=== PATIENT | female | born 1950 | race Caucasian/White ===

== ENCOUNTER → 2017-08-26 | Outpatient (REF) | payer MEDICARE, BC | LOC: M LAB REF 12:44 | PROVIDERS: ATTEND Family Medicine | DX: E83.52 Hypercalcemia (principal) ==

== ENCOUNTER → 2018-03-08 | Outpatient (REF) | payer MEDICARE, BC | LOC: M SFHCLERA 18:21 | DX: J02.9 Acute pharyngitis, unspecified (principal) ==

== ENCOUNTER → 2018-05-17 | Outpatient (CLI) | payer BC, MEDICARE ==
[2018-05-17 10:31] LABS: HEMOGLOBIN 12.9 g/dl (12.0-15.5); MEAN CORPUSCULAR HEMOGLOBIN 32.3 pg (27.0-33.0); MEAN CORPUSCULAR HGB CONC 33.1 g/dl (32.0-36.5); MEAN CORPUSCULAR VOLUME 97.7 fl (80.0-96.0); PLATELET COUNT, AUTOMATED 208 10^3/uL (150-450); RED BLOOD COUNT 3.99 10^6/uL (4.00-5.40); RED CELL DISTRIBUTION WIDTH 13.6 % (11.5-14.5); WHITE BLOOD COUNT 6.3 10^3/uL (4.0-10.0)
[2018-05-17 10:46] LABS: INR 1.04; PROTHROMBIN TIME 13.7 SECONDS (12.1-14.4)
[2018-05-17 10:50] LABS: ERYTHROCYTE SEDIMENTATION RATE 21 mm/hr (0-30)
[2018-05-17 11:09] LABS: ALBUMIN 3.9 GM/DL (3.2-5.2); ALBUMIN/GLOBULIN RATIO 1.18 (1.00-1.93); ALKALINE PHOSPHATASE 62 U/L (45-117); ALT/SGPT 23 U/L (12-78); ANION GAP 4 MEQ/L (8-16); AST/SGOT 15 U/L (7-37); BILIRUBIN,TOTAL 0.3 MG/DL (0.2-1.0); BLOOD UREA NITROGEN 16 MG/DL (7-18); CALCIUM LEVEL 9.9 MG/DL (8.8-10.2); CARBON DIOXIDE LEVEL 32 MEQ/L (21-32); CHLORIDE LEVEL 105 MEQ/L (98-107); CREATININE FOR GFR 0.84 MG/DL (0.55-1.30); GLOMERULAR FILTRATION RATE > 60.0 (>45); GLUCOSE, FASTING 81 MG/DL (70-100); SODIUM LEVEL 141 MEQ/L (136-145); TOTAL PROTEIN 7.2 GM/DL (6.4-8.2)
== END ==
LOC: M LAB 10:02
DX: Z01.810 Encounter for preprocedural cardiovascular examination (principal); M17.12 Unilateral primary osteoarthritis, left knee
CPT/HCPCS: 71046

== ENCOUNTER 2018-06-01 08:48 | Inpatient (IN) | payer MEDICARE, BC ==
[~2018-06-01 08:48] MED LIST: LIDOCAINE 1% MDV 20ML VIAL SQ
[2018-06-01] MEDS: LISINOPRIL 20 MG TAB PO (09:00)
[2018-06-01] MEDS: ACETAMINOPHEN 500 MG TAB PO (09:36)
[2018-06-01] MEDS: LR 1,000 ML IV ×3 (09:37→14:15)
[2018-06-01] MEDS ORDERED: MIDAZOLAM INJ 2 MG/2 ML VIAL (J2250) As Ordered ×2 (10:08→10:44)
[2018-06-01] MEDS ORDERED: fentaNYL 100 MCG/2 ML INJECTION (J3010) As Ordered ×2 (10:08→10:44)
[2018-06-01] MEDS: fentaNYL 100 MCG/2 ML INJECTION (J3010) IV (10:32)
[2018-06-01] MEDS: MIDAZOLAM INJ 2 MG/2 ML VIAL (J2250) IV ×2 (10:32→10:35)
[2018-06-01] MEDS ORDERED: LIDOCAINE 2% INJ 100 MG/5 ML SDV (FOR ANES.) As Ordered (10:45)
[2018-06-01] MEDS ORDERED: PROPOFOL 200 MG/20 ML VIAL As Ordered (10:45)
[2018-06-01] MEDS ORDERED: EPINEPHrine INJ 1 MG/ML 1ML AMP (11:59)
[2018-06-01] MEDS ORDERED: LIDOCAINE 1% MDV 20ML VIAL (11:59)
[2018-06-01] MEDS ORDERED: ROPIvacaine 0.5% 30 ML INJECTION (J2795 PER 1MG) (11:59)
[2018-06-01] MEDS ORDERED: ePHEDrine SULFATE 25 MG/5 ML(5MG/ML) SYRINGE As Ordered (12:14)
[2018-06-01] MEDS ORDERED: BUPIVACAINE/DEXTROSE 0.75% 2 ML AMP As Ordered (12:21)
[2018-06-01] MEDS ORDERED: ONDANSETRON 4MG/2ML VIAL (J2405) As Ordered (12:28)
[2018-06-01] MEDS ORDERED: dexameTHASONE 4 MG/ML 1ML VIAL (J1100) As Ordered (12:28)
[2018-06-01] MEDS: ceFAZolin 1GM INJ (J0690 PER 500MG) As Ordered (12:40)
[2018-06-01] MEDS: BUPIVACAINE HCL 0.25% 10 ML VIAL As Ordered (13:06)
[2018-06-01] MEDS: BUPIVACAINE LIPOSOME/PF 1.3% 20 ML VIAL (13.3MG/ML)(EXPAREL) As Ordered (13:06)
[2018-06-01] MEDS: EPINEPHrine INJ 1 MG/ML 1ML AMP As Ordered (13:07)
[2018-06-01] MEDS: TRANEXAMIC ACID 100 MG/ML 10ML VIAL As Ordered (13:07)
[2018-06-01] MEDS ORDERED: MORPHINE 1MG/ML IN 0.9% NACL 100ML IV BAG As Ordered (13:30)
[2018-06-01] MEDS ORDERED: NALOXONE INJ 0.4 MG/1 ML VIAL (J2310) IV (14:00)
[2018-06-01] MEDS ORDERED: ACETAMINOPHEN TAB 650MG DOSE (2X325MG) PO (14:00)
[2018-06-01] MEDS ORDERED: MORPHINE 1MG/ML IN 0.9% NACL 100ML IV BAG IV (14:00)
[2018-06-01] MEDS ORDERED: ONDANSETRON 4MG/2ML VIAL (J2405) IV ×2 (14:00→14:15)
[2018-06-01] MEDS ORDERED: FLEET ENEMA PR (14:00)
[2018-06-01] MEDS ORDERED: diphenhydrAMINE INJ 50MG/ML VIAL (J1200) IV (14:00)
[2018-06-01] MEDS ORDERED: EPIDURAL/PCA KEYS XX (14:00)
[2018-06-01] MEDS ORDERED: NALBUPHINE HCL 10 MG/ML AMP (J2300) IV (14:00)
[2018-06-01] MEDS ORDERED: MEPERIDINE INJ 25 MG/ML VIAL (J2175) IV (14:15)
[2018-06-01] MEDS ORDERED: METOCLOPRAMIDE INJ 10MG/2ML VIAL (J2765) IV (14:15)
[2018-06-01] MEDS ORDERED: PERCOCET 5MG/325MG TAB PO (14:15)
[2018-06-01] MEDS ORDERED: fentaNYL 100 MCG/2 ML INJECTION (J3010) IV (14:15)
[2018-06-01] MEDS: ATORVASTATIN 20 MG TAB PO (16:28)
[2018-06-01] MEDS: valACYclovir HCL 500 MG TAB PO (20:36)
[2018-06-01] MEDS: FAMOTIDINE 20 MG TAB PO (20:36)
[2018-06-02] MEDS: LR 1,000 ML IV (02:45)
[2018-06-02] MEDS: LEVOTHYROXINE 75MCG TABLET (0.075MG) PO (06:10)
[2018-06-02 06:31] LABS: HEMATOCRIT 37.1 % (36.0-47.0); HEMOGLOBIN 11.9 g/dl (12.0-15.5); MEAN CORPUSCULAR HEMOGLOBIN 32.5 pg (27.0-33.0); MEAN CORPUSCULAR HGB CONC 32.1 g/dl (32.0-36.5); MEAN CORPUSCULAR VOLUME 101.4 fl (80.0-96.0); PLATELET COUNT, AUTOMATED 203 10^3/uL (150-450); RED BLOOD COUNT 3.66 10^6/uL (4.00-5.40); RED CELL DISTRIBUTION WIDTH 13.4 % (11.5-14.5); WHITE BLOOD COUNT 8.3 10^3/uL (4.0-10.0)
[2018-06-02 06:44] LABS: ANION GAP 6 MEQ/L (8-16); BLOOD UREA NITROGEN 15 MG/DL (7-18); CALCIUM LEVEL 9.2 MG/DL (8.8-10.2); CARBON DIOXIDE LEVEL 29 MEQ/L (21-32); CHLORIDE LEVEL 106 MEQ/L (98-107); CREATININE FOR GFR 0.85 MG/DL (0.55-1.30); GLOMERULAR FILTRATION RATE > 60.0 (>45); GLUCOSE, FASTING 119 MG/DL (70-100); POTASSIUM SERUM 4.2 MEQ/L (3.5-5.1); SODIUM LEVEL 141 MEQ/L (136-145)
[2018-06-02] MEDS ORDERED: PERCOCET 5MG/325MG TAB PO (06:45)
[2018-06-02] MEDS: MIRALAX *UNIT DOSE* 17GM PACKET PO (08:38)
[2018-06-02] MEDS: MOM 30ML SUSPENSION UDC PO (08:38)
[2018-06-02] MEDS: PERCOCET 5MG/325MG TAB PO ×2 (08:40→11:51)
[2018-06-02] MEDS: ATORVASTATIN 20 MG TAB PO (08:40)
[2018-06-02] MEDS: SENOKOT S TAB PO (08:40)
[2018-06-02] MEDS: ESCITALOPRAM OXALATE 10 MG TAB (LEXAPRO) PO (08:42)
[2018-06-02] MEDS: LISINOPRIL 20 MG TAB PO (08:42)
[2018-06-02] MEDS: hydroCHLOROthiazide 12.5 MG CAPSULE PO (11:52)
[2018-06-02] MEDS ORDERED: RIVAROXABAN 10 MG TAB (XARELTO) PO (18:00)
[2018-06-03] MEDS ORDERED: LEVOTHYROXINE 88MCG TABLET (0.088 MG) PO (06:00)
== END 2018-06-02 12:23 | disposition home or self-care (01) | DRG 470 ==
LOC: M OR 08:48 → M MS5PR 15:00
PROC: 0SRD0J9 Replacement of Left Knee Joint with Synthetic Substitute, Cemented, Open Approach (ICD-10-PCS; principal; 2018-06-01 11:45)
DX: M17.12 Unilateral primary osteoarthritis, left knee (principal); E03.9 Hypothyroidism, unspecified; I10 Essential (primary) hypertension; E78.00 Pure hypercholesterolemia, unspecified; F32.9 Major depressive disorder, single episode, unspecified; K21.9 Gastro-esophageal reflux disease without esophagitis; G47.33 Obstructive sleep apnea (adult) (pediatric); E55.9 Vitamin D deficiency, unspecified; Z79.899 Other long term (current) drug therapy; Z87.891 Personal history of nicotine dependence; F34.1 Dysthymic disorder; E78.5 Hyperlipidemia, unspecified; I83.90 Asymptomatic varicose veins of unspecified lower extremity; F10.10 Alcohol abuse, uncomplicated; B00.9 Herpesviral infection, unspecified

== ENCOUNTER → 2018-06-16 | Outpatient (REF) | payer MEDICARE, BC ==
[2018-06-16 19:47] LABS: FOLATE 14.7 NG/ML
== END ==
LOC: M LAB REF 17:46
DX: R71.8 Other abnormality of red blood cells (principal)
CPT/HCPCS: 82746

== ENCOUNTER → 2019-02-17 | Outpatient (REF) | payer MEDICARE, BC ==
[~2019-02-17] MED LIST changes: +ALEV220T26 PO; +ASPI81TA26 PO; +ATOR1TAB21 PO; +DICL1GEL3 TD; +DRIS50003 PO; +LEVO75TA4 PO; +LEVO88TA3 PO; +LEXA1TAB2 PO; -LIDOCAINE 1% MDV 20ML VIAL SQ; +LISI20TA PO; +PERC5TAB12 PO; +RANI150T PO; +SLOWTAB2 PO; +TURM500T PO; +VALA1TAB2 PO; +XARE10TA PO
== END ==
LOC: M LAB REF 12:42
PROVIDERS: ATTEND Family Medicine
DX: E83.52 Hypercalcemia (principal)

== ENCOUNTER → 2019-07-26 | Outpatient (REF) | payer MEDICARE, BC ==
[~2019-07-26] MED LIST changes: -LISI20TA PO; +LISI20TA19 PO
== END ==
LOC: M LAB REF 16:54
PROVIDERS: ATTEND Family Medicine
DX: E78.5 Hyperlipidemia, unspecified (principal); Z01.89 Encounter for other specified special examinations

== ENCOUNTER → 2021-03-19 | Outpatient (CLI) | payer MEDICARE, BC ==
[~2021-03-19] MED LIST changes: -LISI20TA19 PO; +LISI20TA35 PO; -VALA1TAB2 PO; +VALA1TAB5 PO
[2021-03-19 15:43] LABS: BASO % 0.4 % (0.0-1.0); EOS # 0.4 10^3/uL (0.0-0.5); EOS % 4.3 % (0.0-3.0); HEMATOCRIT 40.5 % (36.0-47.0); LYMPH % 22.8 % (24.0-44.0); MEAN CORPUSCULAR HEMOGLOBIN 31.8 pg (27.0-33.0); MEAN CORPUSCULAR HGB CONC 32.1 g/dl (32.0-36.5); MONO # 0.7 10^3/uL (0.0-0.8); MONO % 7.8 % (2.0-8.0); NEUTROPHILS # 5.5 10^3/uL (1.5-8.5); NEUTROPHILS % 64.3 % (36.0-66.0); PLATELET COUNT, AUTOMATED 209 10^3/uL (150-450); RED BLOOD COUNT 4.09 10^6/uL (4.00-5.40); WHITE BLOOD COUNT 8.5 10^3/uL (4.0-10.0)
[2021-03-19 16:09] LABS: C REACTIVE PROTEIN QUANTITATIV 0.32 MG/DL (0.00-0.30); URIC ACID 6.5 MG/DL (2.6-6.0)
[2021-03-19 16:19] LABS: ERYTHROCYTE SEDIMENTATION RATE 26 mm/hr (0-30)
== END ==
LOC: M PLALAB 11:55
PROVIDERS: ATTEND Physician Assistant Surgical
DX: M10.071 Idiopathic gout, right ankle and foot (principal)

== ENCOUNTER → 2021-04-30 | Outpatient (CLI) | payer MEDICARE, BC ==
[~2021-04-30] MED LIST changes: +METHACHOLINE KIT (J7674) INH ONE
--- NOTE | 2021-04-30 11:23 | PFTRPT ---
Site: [facility], [address] [place], [address] ID: [id number] Name: ODETTE CARRANZA Visit Date: 04/30/2021 Second ID: [id number] Referring Doctor: Imelda Castle Reviewing Doctor: Quinn Borrego MD Hosiery Mater: Susana BONNER RRT Age: 70 : 1950 Sex: Female Race: Height: 63.00 Inches Weight: 195.00 Lbs BSA: 1.91 Order IDs: [id number] Requested Test(s): <RESP-PFT.METH CHAL> Diagnosis: R05 of albuterol for post bronchodilator. Review Status: Not Reviewed Pre-Bronch Post-Bronch Pred Actual %Pred Actual %Chng SPIROMETRY FVC (L) 2.84 2.30 80 2.28 FEV1 (L) 2.15 1.76 81 1.74 -1 FEV1/FVC (%) 76 77 100 76 FEF 25% (L/sec) 4.61 3.51 76 4.51 28 FEF 50% (L/sec) 3.32 1.97 59 2.20 11 FEF 75% (L/sec) 0.96 0.57 59 0.41 -28 FEF 25-75% (L/sec) 1.80 1.47 81 1.37 -6 FEF Max (L/sec) 5.43 3.77 69 4.74 25 FIVC (L) 2.26 2.27 FIF 50% (L/sec) 3.41 3.17 92 4.51 42 FIF Max (L/sec) 3.51 4.79 36 Expiratory Time (sec) 6.61 6.30 -4 Back Extrap Vol (L) 0.07 0.07 Time To FEFmax (sec) 0.110 0.087 -20
== END ==
LOC: M CARPUL 10:14
PROVIDERS: ATTEND Nurse Practitioner Adult Health
DX: R05 Cough (principal)
CPT/HCPCS: 94070; 95070; J7674

== ENCOUNTER → 2021-06-03 | Outpatient (REF) | payer MEDICARE, BC ==
[~2021-06-03] MED LIST changes: -METHACHOLINE KIT (J7674) INH ONE
== END ==
LOC: M LAB REF 11:22
PROVIDERS: ATTEND Family Medicine
DX: E83.52 Hypercalcemia (principal)

== ENCOUNTER → 2022-04-08 | Outpatient (REF) | payer MEDICARE, BC | LOC: M LAB REF 17:35 | PROVIDERS: ATTEND Family Medicine | DX: M10.9 Gout, unspecified (principal) ==

== ENCOUNTER 2023-06-04 11:36 | Day surgery (SDC) | payer MEDICARE, BC ==
[~2023-06-04] VITALS: Ht 160 cm; Wt 93.3 kg
[~2023-06-04 11:36] MED LIST changes: +DICL100G10 TD; -DICL1GEL3 TD; +FLUT22IN INH; +LEVO100C PO; +NS 1,000 ML IV ONE; +OMEP-173 PO; +SYNT112T2 PO
[2023-06-04] MEDS ORDERED: LIDOCAINE 2% 100MG/5ML SDV (FOR ANES.) As Ordered ONE (12:13)
[2023-06-04] MEDS ORDERED: propofoL 200 MG/20 ML VIAL As Ordered ONE ×3 (12:13→13:25)
[2023-06-04] MEDS ORDERED: LEVA45AE INH (12:41)
[2023-06-04] MEDS ORDERED: ASPI81CH33 PO (12:41)
[2023-06-04] MEDS ORDERED: fentaNYL 100 MCG/2 ML INJECTION As Ordered ONE (12:47)
[2023-06-04 13:48] VITALS: BP 122/54; TEMP 98.1; O2SAT 97
== END 2023-06-04 13:57 | disposition home or self-care (01) ==
LOC: M OPP 11:36
PROVIDERS: ATTEND Surgery
DX: Z12.11 Encounter for screening for malignant neoplasm of colon (principal); K63.5 Polyp of colon; K44.9 Diaphragmatic hernia without obstruction or gangrene; K31.89 Other diseases of stomach and duodenum; G47.30 Sleep apnea, unspecified; Z99.89 Dependence on other enabling machines and devices; Z87.891 Personal history of nicotine dependence; Z79.02 Long term (current) use of antithrombotics/antiplatelets; Z79.51 Long term (current) use of inhaled steroids; Z79.83 Long term (current) use of bisphosphonates; Z79.890 Hormone replacement therapy; Z79.899 Other long term (current) drug therapy
CPT/HCPCS: 43239; 45385; 88305; J3010

== ENCOUNTER → 2024-04-04 | Outpatient (REF) | payer MEDICARE, BC ==
[~2024-04-04] MED LIST changes: +ASPI81CH33 PO; +LEVA45AE INH; -NS 1,000 ML IV ONE
== END ==
LOC: M SFHCWOUN 16:34
PROVIDERS: ATTEND Surgery
DX: S80.02XA Contusion of left knee, initial encounter (principal); X58.XXXA Exposure to other specified factors, initial encounter; Y92.9 Unspecified place or not applicable; Y93.9 Activity, unspecified; Y99.9 Unspecified external cause status